=== PATIENT | female | born 1995 ===

== ENCOUNTER 2021-06-24 22:53 | Emergency (ER) | payer OTHER ==
[~2021-06-24] VITALS: Ht 170.2 cm; Wt 80.3 kg
[2021-06-24 23:40] LABS: BASOPHILS % (AUTO) 1 % (0-1); EOSINOPHILS % (AUTO) 0 % (1-7); LYMPHOCYTES % (AUTO) 18 % (22-44); MEAN CORPUSCULAR HEMOGLOBIN 30.4 pg (27.0-34.8); MEAN PLATELET VOLUME 7.3 fL (7.4-10.4); MONOCYTES % (AUTO) 5 % (2-9); NEUTROPHILS % (AUTO) 76 % (42-75); PLATELET COUNT 345 x10^3/uL (130-400); RED BLOOD COUNT 4.66 x10^6/uL (3.82-5.3); RED CELL DISTRIBUTION WIDTH 12.7 % (9.6-15.2)
--- NOTE | 2021-06-24 23:44 | NUR ---
office agent: patient to room from lobby.
[2021-06-24 23:48] LABS: CHLORIDE 111 mmol/L (98-107)
[2021-06-25] LABS: ALBUMIN 3.6 g/dL (3.4-5.0); ANION GAP 8 mmol/L (5-15); CALCIUM 8.7 mg/dL (8.5-10.1); CREATININE 0.62 mg/dL (0.55-1.02)
[2021-06-25 00:02] LABS: MICROSCOPIC INDICATED
--- NOTE | 2021-06-25 00:26 | NUR ---
PT REPORTS BILATERAL FLANK PAIN WITH PAINFUL URINATION. VS STABLE. PT BACK FROM RADIOLOGY. CALL LIGHT IN PLACE. NO ACUTE DISTRESS NOTED. WILL CONTINUE TO MONITOR.
[2021-06-25 00:38] LABS: ALBUMIN 3.4 g/dL (3.4-5.0); BILIRUBIN, DIRECT 0.2 mg/dL (0.1-0.2)
[2021-06-25 00:40] LABS: BILIRUBIN,INDIRECT 0.5 mg/dL (0.0-2.0); BILIRUBIN,TOTAL 0.7 mg/dL (0.2-1.0); TOTAL PROTEIN 7.5 g/dL (6.4-8.2)
--- NOTE | 2021-06-25 00:51 | NUR ---
PT RESTING IN ROOM. VS STABLE. NO ACUTE DISTRESS NOTED. CALL LIGHT IN PLACE. WILL CONTINUE TO MONITOR.
--- NOTE | 2021-06-25 01:25 | NUR ---
DR BEATTY IN ROOM UPDATING PATIENT
[2021-06-25 01:51] VITALS: BP 111/59
== END 2021-06-25 02:02 | disposition home or self-care (01) ==
LOC: ED 23:59
DX: R30.0 Dysuria (principal); R10.12 Left upper quadrant pain; R11.2 Nausea with vomiting, unspecified; R19.7 Diarrhea, unspecified
CPT/HCPCS: 36415; 74021; 80048; 80076; 81001; 82040; 83690; 84703; 85025; 87086; 99284